=== PATIENT | female | born 1990 | race Two or more races ===

== ENCOUNTER 2019-07-15 10:38 | Emergency (ER) | payer SELFPAY ==
[2019-07-15] MEDS ORDERED: Sodium Chloride 0.9% 10 ML Syringe FLUSH PRN (11:01)
--- NOTE | 2019-07-15 11:07 | EDM.PDOC ---
ED HPI GENERAL MEDICAL PROBLEM - General Chief Complaint: Abdominal Pain Stated Complaint: ABDOMINAL PAIN Time Seen by Provider: 07/15/19 10:55 Source of Information: Reports: Patient, Family - History of Present Illness INITIAL COMMENTS - FREE TEXT/NARRATIVE: Tita is a 28 y/o female who comes to the ER with Epigastric and RUQ abdominal pain that woke her up at 0200. She reports the pain in 8 and constant. She ate [employer] food last night for supper. She was seen a month ago in [place] for the same sx and was placed on Omprazole. An US was ordered, but she has not had it done. The patient was supposed to be seen at [facility] in [place] today at 2: 30pm. Patient has not had anything to eat or drink since 0600 today. Last intake was apple juice. Upper Abdomen Pain Score (Numeric/FACES): 10 - Related Data Allergies Allergy/AdvReac Type Severity Reaction Status Date / Time No Known Allergies Allergy Verified 07/15/19 10:56 Home Meds: Home Meds . [No Known Home Meds] 07/15/19 [History] Past Medical History - Past Health History Medical/Surgical History: Denies Medical/Surgical History Social & Family History - Tobacco Use Smoking Status *Q: Never Smoker ED ROS GENERAL - Review of Systems Review Of Systems: See Below Constitutional: Reports: Decreased Appetite HEENT: Reports: No Symptoms Respiratory: Reports: No Symptoms Cardiovascular: Reports: No Symptoms Endocrine: Reports: No Symptoms GI/Abdominal: Reports: Abdominal Pain, Nausea, Vomiting : Reports: No Symptoms Musculoskeletal: Reports: No Symptoms Skin: Reports: No Symptoms Neurological: Reports: No Symptoms Psychiatric: Reports: No Symptoms Hematologic/Lymphatic: Reports: No Symptoms Immunologic: Reports: No Symptoms ED EXAM, GI/ABD - Physical Exam Exam: See Below Exam Limited By: No Limitations General Appearance: Alert, WD/WN, No Apparent Distress Ears: Normal External Exam, Hearing Grossly Normal Nose: Normal Inspection, Normal Mucosa, No Blood Throat/Mouth: Normal Inspection, Normal Lips, Normal Teeth, Normal Gums, Normal Voice Head: Atraumatic, Normocephalic Neck: Supple, Non-Tender Respiratory/Chest: No Respiratory Distress, Lungs Clear, Normal Breath Sounds, Chest Non-Tender Cardiovascular: Normal Peripheral Pulses, Regular Rate, Rhythm, No Edema, No Murmur GI/Abdominal Exam: Normal Bowel Sounds, Soft, Tender (RUQ & Epigastrum), Other ( +Muprphy's Sign) (Female) Exam: Deferred Rectal (Female) Exam: Deferred Back Exam: Normal Inspection Extremities: Normal Inspection, Normal Range of Motion, Normal Capillary Refill Neurological: Alert, Oriented, CN II-XII Intact, Normal Cognition Psychiatric: Normal Affect, Normal Mood Skin Exam: Warm, Dry, Intact, Normal Color Lymphatic: No Adenopathy Course - Vital Signs Text/Narrative:: 1055 The patient was seen by the [facility]. Labs and CT were ordered. She was give A liter of NS, Zofran 4 mg IVP, and Toradol 30 gm IVP. 1225 Patient feeling better. Lab results reviewed. Noted elevated neutrophils, T Bili, and AST/ALT. CT report notes distended gallbladder with multiple stones. 1230 Stuart Michelle consulted for Surgeon referral. 1250 Dr Rivas called back and accepted patient for transport. Patient remains pain free at present time. Last Recorded V/S: Last Vital Signs Temp 36.3 C 07/15/19 10:43 Pulse 70 07/15/19 10:43 Resp 16 07/15/19 10:43 BP 106/83 07/15/19 10:43 Pulse Ox 97 07/15/19 10:43 - Orders/Labs/Meds Orders: Active Orders 24 hr Category Date Time Status UA W/MICROSCOPIC [URIN] Stat Lab 07/15/19 12:15 Ordered Urine [HCG QUALITATIVE,URINE] [URCHEM] Stat Lab 07/15/19 12:15 Ordered Sodium Chloride 0.9% [Saline Flush] Med 07/15/19 11:01 Active 10 ml FLUSH ASDIRECTED PRN Saline Lock Insert [OM.PC] Stat Oth 07/15/19 11:01 Ordered Medication Orders Sodium Chloride (Saline Flush) 10 ml FLUSH ASDIRECTED PRN PRN Reason: Keep Vein Open Labs: Laboratory Tests 07/15/19 07/15/19 Range/Units 11:13 11:13 WBC 8.3 (4.0-10.0) x10^3/uL RBC 4.78 (4.00-5.50) x10^6/uL Hgb 14.2 (12.0-16.0) g/dL Hct 42.4 (33.0-47.0) % MCV 88.7 (78.0-93.0) fL MCH 29.7 (26.0-32.0) pg MCHC 33.5 (32.0-36.0) g/dL RDW Coeff of Eusebio 13.4 (10.0-15.0) % Plt Count 173 (130-400) x10^3/uL Neut % (Auto) 87.0 H (50.0-80.0) % Lymph % (Auto) 8.9 L (25.0-50.0) % [place] % (Auto) 3.6 (2.0-11.0) % Eos % (Auto) 0.4 (0.0-4.0) % Baso % (Auto) 0.1 L (0.2-1.2) % Sodium 140 (136-145) mmol/L Potassium 3.9 (3.5-5.1) mmol/L Chloride 102 (98-107) mmol/L Carbon Dioxide 25 (21-32) mmol/L Anion Gap 16.9 (10-20) mmol/L BUN 10 (7-18) mg/dL Creatinine 0.7 (0.55-1.02) mg/dL Est Cr Clr Drug Dosing TNP Estimated GFR (MDRD) > 60 Glucose 129 H (74-106) mg/dL Calcium 9.2 (8.5-10.1) mg/dL Corrected Calcium 8.88 (8.5-10.1) mg/dL Total Bilirubin 1.3 H (0.2-1.0) mg/dL AST 271 H (15-37) U/L ALT 190 H (14-59) U/L Alkaline Phosphatase 176 H (46-116) U/L Total Protein 9.4 H (6.4-8.2) g/dL Albumin 4.4 (3.4-5.0) g/dL Globulin 5.0 Albumin/Globulin Ratio 0.88 Amylase 64 (25-115) U/L Meds: Medications Generic Name Dose Route Start Last Admin Trade Name Freq PRN Reason Stop Dose Admin Sodium Chloride 10 ml 07/15/19 11:01 Saline Flush FLUSH ASDIRECTED PRN Keep Vein Open Discontinued Medications Generic Name Dose Route Start Last Admin Trade Name Freq PRN Reason Stop Dose Admin Fentanyl 50 mcg 07/15/19 11:01 Sublimaze IVPUSH 07/15/19 11:02 ONETIME ONE Sodium Chloride 1,000 mls @ 999 mls/hr 07/15/19 11:01 07/15/19 11:34 Normal Saline IV 07/15/19 12:01 999 mls/hr ONETIME ONE Administration Iopamidol 100 ml 07/15/19 11:08 07/15/19 11:38 Isovue-300 (61%) IVPUSH 07/15/19 11:09 100 ml ONETIME ONE Administration Ketorolac Tromethamine 30 mg 07/15/19 11:02 07/15/19 11:36 Toradol IVPUSH 07/15/19 11:03 30 mg ONETIME ONE Administration Ondansetron HCl 4 mg 07/15/19 11:02 07/15/19 11:34 Zofran IVPUSH 07/15/19 11:03 4 mg ONETIME ONE Administration - Radiology Interpretation Free Text/Narrative:: Distended gallbladder with multiple stones Departure - Departure Time of Disposition: 12:54 Disposition: DC/Tfer to Acute Hospital 02 Condition: Good Clinical Impression: Acute calculous cholecystitis - Discharge Information *PRESCRIPTION DRUG MONITORING PROGRAM REVIEWED*: Not Applicable *COPY OF PRESCRIPTION DRUG MONITORING REPORT IN PATIENT ABBEY: Not Applicable Forms: ED Department Discharge, Interfacility Transfer EMTALA Additional Instructions: -Transfer to [facility] via POV to Dr Rivas for Direct Admission -No food or drink advised until seen in [place] - My Orders Last 24 Hours: My Active Orders 07/15/19 11:01 Sodium Chloride 0.9% [Saline Flush] 10 ml FLUSH ASDIRECTED PRN Saline Lock Insert [OM.PC] Stat 07/15/19 12:15 UA W/MICROSCOPIC [URIN] Stat Urine [HCG QUALITATIVE,URINE] [URCHEM] Stat - Assessment/Plan Last 24 Hours: My Active Orders 07/15/19 11:01 Sodium Chloride 0.9% [Saline Flush] 10 ml FLUSH ASDIRECTED PRN Saline Lock Insert [OM.PC] Stat 07/15/19 12:15 UA W/MICROSCOPIC [URIN] Stat Urine [HCG QUALITATIVE,URINE] [URCHEM] Stat
[2019-07-15] MEDS: Ondansetron 4 MG/2 ML SDV IVPUSH ONE (11:34)
[2019-07-15] MEDS: Sodium Chloride 0.9% 1,000 ML IV ONE (11:34)
[2019-07-15] MEDS: Ketorolac 30 MG/ML SDV IVPUSH ONE (11:36)
[2019-07-15] MEDS: Iopamidol 612 MG/ML 100 ML Bottle IVPUSH ONE (11:38)
[2019-07-15 11:39] LABS: CHLORIDE,CL 102 mmol/L (98-107); SODIUM,NA 140 mmol/L (136-145)
[2019-07-15 11:40] LABS: ANION GAP 16.9 mmol/L (10-20)
--- NOTE | 2019-07-15 12:11 | CT ---
[id number] CT/CT Abdomen Pelvis W IV EXAM: CT Abdomen Pelvis W IV CLINICAL DATA: RIGHT UPPER QUADRANT/EPIGASTRIC PAIN. COMPARISON STUDY: None. FINDINGS: Lung bases are clear. The liver, spleen, pancreas, adrenal glands and kidneys are unremarkable. The gallbladder is distended and there are multiple stones. Additionally there is pericholecystic fat stranding. No bowel obstruction or inflammation. The appendix is visualized and appears normal. Small amount of free fluid within the pelvis. This appears slightly more than would be expected for physiologic fluid alone. No lymphadenopathy, free fluid, or pneumoperitoneum. Scattered changes of spondylosis the spine. No fracture or osseous lesion. IMPRESSION: 1. Distention of the gallbladder with multiple stones. Additionally there is mild pericholecystic fat stranding. These findings could be seen with acute cholecystitis. 2. Small amount of free fluid within the pelvis. This is nonspecific though appears somewhat greater than would be expected for physiologic fluid alone. Joseph Bryan DO 07/15/19 1210 Thank you for allowing us to participate in the care of your patient.
[2019-07-15] MEDS: fentaNYL 100 MCG/2 ML SDV IVPUSH ONE (13:13)
== END 2019-07-15 13:36 | disposition short-term general hospital (02) ==
LOC: VM.ED 10:38
DX: K80.00 Calculus of gallbladder with acute cholecystitis without obstruction (principal)
CPT/HCPCS: 74177; 80053; 81001; 81025; 82150; 85025; 96361; 96374; 96375; 99285; J1885; J2405; J7030; Q9967; 36415; 99284-GF